=== PATIENT | female | born 1960 | race Caucasian/White ===

== ENCOUNTER 2023-05-26 11:54 | Outpatient (CLI) | payer OTHER ==
[2023-05-26 14:38] LABS: BASOPHILS # (AUTO) 0.1 10^3/uL (0.0-0.1); BASOPHILS % (AUTO) 1.2 %; EOSINOPHILS # (AUTO) 0.4 10^3/uL (0.0-0.7); EOSINOPHILS % (AUTO) 4.8 %; HCT - HEMATOCRIT 40.5 % (37.0-47.0); HGB - HEMOGLOBIN 12.7 g/dL (12.0-16.0); LYMPHOCYTES # (AUTO) 2.3 10^3/uL (1.5-3.5); MEAN CORPUSCULAR HEMOGLOBIN 30.8 pg (27.0-31.0); MEAN CORPUSCULAR HGB CONC 31.4 g/dL (32.0-36.0); MEAN CORPUSCULAR VOLUME 98.1 fL (81.0-99.0); MEAN PLATELET VOLUME 11.3 fL (7.9-10.8); MONOCYTES # (AUTO) 0.6 10^3/uL (0.0-1.0); NEUTROPHILS # (AUTO) 4.1 10^3/uL (1.5-6.6); NEUTROPHILS % (AUTO) 54.6 %; PLT - PLATELET COUNT 328 10^3/uL (130-450); RED BLOOD COUNT 4.13 10^6/uL (4.20-5.40); RED CELL DISTRIBUTION WIDTH 13.8 % (12.0-15.0); WHITE BLOOD COUNT 7.5 x10^3/uL (4.8-10.8)
[2023-05-26 15:01] LABS: ALBUMIN 4.4 g/dL (3.2-5.5); ALBUMIN/GLOBULIN RATIO 1.3 (1.0-2.2); ALKALINE PHOSPHATASE 164 IU/L (42-121); ALT ALANINE AMINOTRANSFERASE 32 IU/L (10-60); AMYLASE 35 U/L (28-100); AST ASPARTATE AMINOTRANSFERASE 19 IU/L (10-42); BILIRUBIN,TOTAL 0.6 mg/dL (0.2-1.0); BUN - BLOOD UREA NITROGEN 19 mg/dL (6-20); CALCIUM 10.2 mg/dL (8.5-10.3); CARBON DIOXIDE - CO2 30 mmol/L (21-32); CHLORIDE 103 mmol/L (101-111); CREATININE 0.8 mg/dL (0.6-1.3); GFR - MDRD 72 (>89); GLUCOSE 114 mg/dL (74-104); POTASSIUM 4.4 mmol/L (3.5-4.5); SODIUM 139 mmol/L (135-145); TOTAL PROTEIN 7.7 g/dL (6.4-8.9)
[2023-05-26 15:11] LABS: LIPASE < 10 U/L (11-82)
[2023-05-26 21:21] LABS: ESTIMATED AVERAGE GLUCOSE 123 mg/dL (70-100); HEMOGLOBIN A1c% 5.9 % (4.27-6.07)
== END 2023-05-26 11:55 | disposition home or self-care (01) ==
LOC: LAB.S 11:54
PROVIDERS: ATTEND Physician Assistant Medical
DX: Z00.00 Encounter for general adult medical examination without abnormal findings (principal); R10.9 Unspecified abdominal pain
CPT/HCPCS: 36415; 80053; 82150; 83036; 83690; 85025

== ENCOUNTER 2023-06-05 08:00 | Outpatient (CLI) | payer OTHER ==
--- NOTE | 2023-06-05 18:50 | Ultrasound Report ---
PROCEDURE: Abdomen Limited INDICATIONS: RUQ PAIN TECHNIQUE: Real-time focused scanning was performed of the abdomen, with image documentation. COMPARISONS: None. FINDINGS: Liver: Liver is normal in size and heterogeneous in echotexture. Main portal vein is patent with nor mal caliber and hepatopedal flow. Gallbladder: Cholelithiasis without wall thickening. No pericholecystic fluid. Sonographic Becerra sig n is negative. Biliary ducts: Intrahepatic bile ducts are non-dilated. Extrahepatic bile duct caliber measures up to 16 mm. No filling defect visualized. Normal is 6-7 mm or less in diameter, or 10 mm or less post-c holecystectomy. Pancreas: Visualized portions of the pancreas are sonographically normal. Right kidney: Normal in size and echotexture. Right kidney measures 10.4 cm long. No hydronephrosis or nephrolithiasis. No solid masses. No complex renal cystic lesions which require follow-up. IVC: Intrahepatic inferior vena cava is patent. Miscellaneous: No free abdominal fluid. IMPRESSION: Cholelithiasis without sonographic evidence of acute cholecystitis. Dilated common bile duct. No choledocholithiasis visualized. Consider further evaluation with abdomin al MRI/MRCP. Reviewed by: Carmella Richardson MD on 06/05/2023 4:55 PM PST Approved by: Carmella Richardson MD on 06/05/2023 4:55 PM PST Station ID: [id number]
== END 2023-06-05 08:01 | disposition home or self-care (01) ==
LOC: DI 08:00
PROVIDERS: ATTEND Physician Assistant Medical
DX: K80.20 Calculus of gallbladder without cholecystitis without obstruction (principal)

== ENCOUNTER 2023-06-22 09:01 | Outpatient (CLI) | payer MEDICARE, OTHER ==
--- NOTE | 2023-07-01 09:17 | Mammography Report ---
BILATERAL DIGITAL SCREENING MAMMOGRAM 3D/2D: 06/22/2023 CLINICAL: Routine screening. No prior exams were available for comparison. Both breasts are heterogeneously dense, which may obscure small masses (category c / 51-75% glandular tissue). There is an asymmetry in the right breast anterior depth superior region seen on the mediolateral obl ique view only. There also is an oval mass with grouped calcifications in the right breast at 12 o'clock posterior de pth. There is a cluster of asymmetries in the left breast anterior depth central to the nipple seen on the craniocaudal view only. No other significant masses or calcifications are seen in either breast. IMPRESSION: INCOMPLETE: NEEDS ADDITIONAL IMAGING EVALUATION The asymmetry in the right breast anterior depth superior region seen on the mediolateral oblique vie w only is indeterminate. Additional views with possible ultrasound are recommended. The oval mass in the right breast at 12 o'clock with calcifications posterior depth is indeterminate. Additional views with possible ultrasound are recommended. The cluster of asymmetries in the left breast anterior depth central to the nipple seen on the cranio caudal view only is indeterminate. Additional views with possible ultrasound are recommended. Based on the Tyrer Cuzick model (a risk assessment model) the patient's lifetime risk is 12.3% and he r 10 year risk is 6.0%. According to the ACR, ACS, and NCCN guidelines, an annual breast MRI exam antonietta ng with mammogram is recommended if the patient's lifetime risk is 20% or greater. This exam was interpreted at Station ID: [id number]. NOTE: For mammograms, a report in lay terms will be sent to the patient. Approximately 15% of breast malignancies will not be visualized mammographically. In the management of a palpable breast mass, a negative mammogram must not discourage biopsy of a clinically suspicious lesion. Electronically Signed By: Demond Ren M.D. lc/:06/30/2023 08:03:44 ACR BI-RADS Category 0: Incomplete 3340F PARENCHYMAL PATTERN: (D) - The breast(s) demonstrate(s) heterogeneously dense fibroglandular parenchy ma. BI-RADS CATEGORY: (0) - 0 Mammo and [place] [id number] Immediate follow-up LATERALITY: (B)
== END 2023-06-22 09:02 | disposition home or self-care (01) ==
LOC: DI.S 09:01
PROVIDERS: ATTEND Physician Assistant Medical
DX: Z12.31 Encounter for screening mammogram for malignant neoplasm of breast (principal); R92.333 Mammographic heterogeneous density, bilateral breasts; N63.15 Unspecified lump in the right breast, overlapping quadrants; R92.1 Mammographic calcification found on diagnostic imaging of breast; R92.8 Other abnormal and inconclusive findings on diagnostic imaging of breast

== ENCOUNTER 2023-07-27 07:54 | Outpatient (CLI) | payer MEDICARE, OTHER ==
--- NOTE | 2023-07-28 09:29 | Ultrasound Report ---
LIMITED ULTRASOUND OF LEFT BREAST: 07/27/2023 CLINICAL: Patient returns today to evaluate a focal asymmetry in the left breast. Comparison is made to exams dated: 07/27/2023 mammogram and 06/22/2023 mammogram - [facility]. Real-time ultrasound of the left breast 11-1 o'clock region was performed. Armenta scale images of the real-time examination were reviewed. No significant abnormalities were seen sonographically in the left breast. IMPRESSION: SUSPICIOUS OF MALIGNANCY No evidence of malignancy in the left breast. No mass or cyst. Mammographic finding is consistent wit h benign fibroglandular tissue. Stereotactic biopsy of the grouped course heterogeneous calcifications in the right breast 12:00 post erior depth is recommended. Exam findings were discussed with the patient. This exam was interpreted at Station ID: [id number]. Electronically Signed By: Jose Lares M.D. slc/:07/27/2023 09:13:40 Ultrasound BI-RADS: 4a Low suspicion for malignancy BI-RADS CATEGORY: (4a) - Low Susp Biopsy [id number] Immediate follow-up LATERALITY: (R)
--- NOTE | 2023-07-28 09:29 | Mammography Report ---
BILATERAL DIGITAL DIAGNOSTIC MAMMOGRAM 3D/2D WITH SPOT COMPRESSION AND MAGNIFICATION: 07/27/2023 CLINICAL: Patient returns today to evaluate asymmetries in bilateral breasts. Comparison is made to exam dated: 06/22/2023 mammogram - [facility]. Both breasts are heterogeneously dense, which may obscure small masses (category c / 51-75% glandular tissue). There are 0.6 cm grouped coarse heterogeneous calcifications in the right breast at 12 o'clock business banker ior depth. There also is an asymmetry in the right breast anterior depth superior region seen on the mediolatera l oblique view only. This is not seen in additional views. There is a possible asymmetry in the left breast anterior depth central to the nipple seen on the multicraft operator niocaudal view only. This is less prominent. No other significant masses or calcifications are seen in either breast. IMPRESSION: INCOMPLETE: NEEDS ADDITIONAL IMAGING EVALUATION The 0.6 cm grouped coarse heterogeneous calcifications in the right breast at 12 o'clock posterior de pth are at a low suspicion for malignancy. -A stereotactic biopsy is recommended. The asymmetry in the right breast anterior depth superior region seen on the mediolateral oblique vie w only is consistent with fibroglandular tissue and is benign. The possible asymmetry in the left breast anterior depth central to the nipple seen on the craniocaud al view only is indeterminate. -A targeted ultrasound is recommended and will immediately follow. Based on the Tyrer Cuzick model (a risk assessment model) the patient's lifetime risk is 12.3% and he r 10 year risk is 6.0%. According to the ACR, ACS, and NCCN guidelines, an annual breast MRI exam antonietta ng with mammogram is recommended if the patient's lifetime risk is 20% or greater. This exam was interpreted at Station ID: [id number]. NOTE: For mammograms, a report in lay terms will be sent to the patient. Approximately 15% of breast malignancies will not be visualized mammographically. In the management of a palpable breast mass, a negative mammogram must not discourage biopsy of a clinically suspicious lesion. Electronically Signed By: Jose Lares M.D. slc/:07/27/2023 09:04:28 ACR BI-RADS Category 0: Incomplete 3340F PARENCHYMAL PATTERN: (D) - The breast(s) demonstrate(s) heterogeneously dense fibroglandular parenchy ma. BI-RADS CATEGORY: (0) - 0 Ultrasound [id number] Immediate follow-up LATERALITY: (B)
== END 2023-07-27 07:55 | disposition home or self-care (01) ==
LOC: DI 07:54
PROVIDERS: ATTEND Physician Assistant Medical
DX: R92.1 Mammographic calcification found on diagnostic imaging of breast (principal); R92.333 Mammographic heterogeneous density, bilateral breasts

== ENCOUNTER 2023-08-09 08:28 | Outpatient (CLI) | payer MEDICARE, OTHER ==
[2023-08-09] MEDS ORDERED: LIDOCAINE-MPF 1% 5 ML VIAL ONE (08:32)
[2023-08-09] MEDS ORDERED: LIDOCAINE 1%-EPI 1:100000 20 ML MDV ONE (08:33)
[2023-08-09] MEDS: LIDOCAINE 1%-EPI 1:100000 20 ML MDV SUBQ ONE (09:52)
[2023-08-09] MEDS: LIDOCAINE-MPF 1% 5 ML VIAL TD ONE (09:52)
--- NOTE | 2023-08-12 09:31 | Mammography Report ---
STEREOTACTIC GUIDED BIOPSY RIGHT BREAST USING VACUUM DEVICE WITH MARKING DEVICE INSERTED AND POST [facility] MOGRAPHIC IMAGING- - RIGHT BREAST POST-PROCEDURE IMAGING FOR MARKER PLACEMENT: 08/09/2023 CLINICAL: Right breast stereotactic biopsy of calcifications, clip placement imaging. Correlation is made to exams dated: 07/27/2023 mammogram and 06/22/2023 mammogram - [facility]. A stereotactic guided biopsy was performed for the concerning 0.6 cm area of calcifications located i n the right breast at 12 o'clock posterior depth. This was described on the previous mammography rep ort. The skin was prepped in the usual manner. Local anesthetic was administered to the access site . A skin yi was made in the breast. The abnormality was approached from the craniocaudal aspect. A 10 gauge biopsy needle was placed adjacent to the abnormality under computer guidance and confirma tory stereotactic mammography images were obtained to document needle placement. Once the needle was documented to be in the correct location, six specimens were obtained using a vacuum assisted device . A clip was inserted into the biopsy cavity. Post procedure mammographic imaging demonstrates the location device at the targeted area. The specimens were sent to the laboratory for pathological alberto lysis. Specimen radiograph contains the calcifications. IMPRESSION: STEREOTACTIC GUIDED BIOPSY BENIGN Stereotactic guided biopsy of the 0.6 cm area of calcifications in the right breast at 12 o'clock pos terior depth was successful. Pathology indicates benign fibroadenomatoid change and nodular stromal calcifications. Pathology results are concordant with imaging findings. Return to annual mammogram screening schedule is recommended. This exam was interpreted at Station ID: [id number]. aleja Campos M.D., M.D./:08/11/2023 17:23:16 BI-RADS CATEGORY: () - Mammogram [id number] return to screening LATERALITY: (B)
== END 2023-08-09 08:29 | disposition home or self-care (01) ==
LOC: DI 08:28
PROVIDERS: ATTEND Physician Assistant Medical
DX: D24.1 Benign neoplasm of right breast (principal); R92.1 Mammographic calcification found on diagnostic imaging of breast
CPT/HCPCS: 19081